=== PATIENT | female | born 2000 | race Caucasian/White ===

== ENCOUNTER 2024-03-05 17:10 | Emergency (ER) | payer MEDICAID, SELFPAY ==
[2024-03-05 17:13] VITALS: BP 127/72; PULSE 109; RESP 26; TEMP 36.2; O2SAT 100
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
[2024-03-05] MEDS: Albuterol/Ipratropium 3 ML UPD VIAL UPD (17:33)
[2024-03-05 17:35] VITALS: BP 127/72; PULSE 109; RESP 26; TEMP 36.2; O2SAT 100
[2024-03-05 17:40] VITALS: PULSE 84; O2SAT 100
--- NOTE | 2024-03-05 17:45 | RT.EKG_ITS ---
APPROVED REPORT Exam: Resting ECG Reason for Exam: dizziness Patient Location: E HR:60 bpm ECG Measurements Heart Rate 60 AXIS ID 136 P 34 QRSd 88 QRS 19 QT 426 T 47 QTc 426 Conclusion Sinus rhythm...normal P axis, V-rate 60- 99
[2024-03-05 18:50] VITALS: BP 117/71; PULSE 88; RESP 14; O2SAT 100
== END 2024-03-05 18:50 | disposition home or self-care (01) ==
LOC: ER 18:34
PROVIDERS: Emergency Provider Physician Assistant
DX: J45.901 Unspecified asthma with (acute) exacerbation; F17.290 Nicotine dependence, other tobacco product, uncomplicated
CPT/HCPCS: 93005; 94640; 99283; 93010; 99284; J7620